=== PATIENT | female | born 1970 | race Caucasian/White ===

== ENCOUNTER 2017-10-09 20:57 | Emergency (ER) | payer OTHER ==
[~2017-10-09] VITALS: Ht 167.6 cm; Wt 101.8 kg
[~2017-10-09 20:57] MED LIST: ALPR0.253 PO; BETA1CAP PO
[2017-10-09 21:17] VITALS: BP 135/80
--- NOTE | 2017-10-09 21:22 | NUR ---
COLLECTED URINE SAMPLE AND PT RETURNED TO LOBBY
--- NOTE | 2017-10-09 21:57 | NUR ---
PT TAKEN TO CHAIR E
--- NOTE | 2017-10-09 22:05 | NUR ---
PATIENT PRESENTS TO ED WITH ABD PAIN X1DAY .PT DENIES N/V/D; SKIN IS PINK/WARM/DRY; AAOX4 WITH EVEN AND STEADY GAIT; LUNGS CLEAR BL; HR EVEN AND REGULAR; PT DENIES ANY FEVER, CP, SOB, OR COUGH AT THIS TIME; PATIENT STATES PAIN OF 10/10 AT THIS TIME; VSS; PATIENT POSITIONED FOR COMFORT; HOB ELEVATED; BEDRAILS UP X2; BED DOWN. ER MD MADE AWARE OF PT STATUS.
[2017-10-09 23:59] LABS: APPEARANCE,URINE SL CLOUDY (CLEAR); BILIRUBIN,URINE NEGATIVE (NEGATIVE); BLOOD, URINE 2+ (NEGATIVE); COLOR,URINE YELLOW (YELLOW); LEUKOCYTE ESTERASE ,URINE NEGATIVE (NEGATIVE); NITRITE, URINE NEGATIVE (NEGATIVE); UGLUCOSE NEGATIVE (NEGATIVE)
[2017-10-10 00:07] LABS: RBC,URINE 3-10 (FEW) /HPF (0-5); URINE AMORPHOUS URATE 3+ /HPF (None Seen); WBC,URINE 0-5 (RARE) /HPF (0-5)
[2017-10-10 00:16] LABS: HEMATOCRIT 43.9 % (36-48); HEMOGLOBIN 14.2 g/dL (12.0-16.0); MEAN CORPUSCULAR HEMOGLOBIN 29 pg (27-31); MEAN CORPUSCULAR HGB CONC 32 g/dL (33-37); MEAN CORPUSCULAR VOLUME 89 fL (80-94); PLATELET COUNT (AUTO) 344 K/uL (140-450); RED BLOOD CELL COUNT(AUTO) 4.93 MIL/uL (4.20-5.40); RED CELL DISTRIBUTION WIDTH 12.3 % (11.6-13.7)
[2017-10-10 00:23] LABS: ANION GAP 12.8 (8-16); CARBON DIOXIDE 27.9 mmol/L (21-32); CREATININE 0.8 mg/dL (0.6-1.3); POTASSIUM 3.7 mmol/L (3.5-5.1)
[2017-10-10 00:26] LABS: WHITE BLOOD COUNT (AUTO) 15.9 K/uL (4.8-10.8)
[2017-10-10 00:27] LABS: LYMPHOCYTES % (MANUAL) 11 % (20-46); MONOCYTES % (MANUAL) 3 % (5-12)
[2017-10-10 00:30] LABS: ALBUMIN 3.5 g/dL (3.4-5.0); TOTAL BILIRUBIN 0.4 mg/dL (0.0-1.0)
[2017-10-10 00:34] LABS: PROTHROMBIN TIME 10.9 secs (10.8-13.4)
--- NOTE | 2017-10-10 00:37 | NUR ---
Patient discharged with v/s stable BY DR CAUSEY. Written and verbal after care instructions given and explained BY DR CAUSEY. Patient alert, oriented and verbalized understanding of instructions. Ambulatory with steady gait. All questions addressed prior to discharge BY DR CAUSEY. ID band removed. Patient advised to follow up with PMD. Rx of CIPRO 500MG, PYRIDIUM 200MG given. Patient educated on indication of medication including possible reaction and side effects BY DR CAUSEY. Opportunity to ask questions provided and answered.
[2017-10-10 00:40] VITALS: BP 122/71
== END 2017-10-10 00:37 | disposition home or self-care (01) ==
LOC: MED 20:57
DX: N39.0 Urinary tract infection, site not specified (principal); I10 Essential (primary) hypertension; Z90.710 Acquired absence of both cervix and uterus; Z79.899 Other long term (current) drug therapy
CPT/HCPCS: 36415; 76856; 80053; 81001; 81025; 85025; 85610; 85730; 86900; 86901; 99285; Q0092